=== PATIENT | female | born 1970 | race Two or more races ===

== ENCOUNTER 2019-05-21 15:45 | Outpatient (CLI) | payer MEDICARE | END 2019-05-21 23:59 | disposition home or self-care (01) | LOC: MSC 15:45 | PROVIDERS: ATTEND Anesthesiology | DX: M25.562 Pain in left knee (principal); M79.605 Pain in left leg; F31.9 Bipolar disorder, unspecified; Z79.1 Long term (current) use of non-steroidal anti-inflammatories (NSAID) ==